=== PATIENT | male | born 1940 | race Caucasian/White ===

== ENCOUNTER 2016-08-03 00:21 | Observation (INO) | payer MEDICARE ==
[~2016-08-03] VITALS: Ht 175.3 cm; Wt 86.4 kg
[~2016-08-03 00:21] MED LIST: ASPI325T11 PO; ASPI325T4 PO; ATOR20TA58 PO; CALC200T3 PO; CALC600T4 PO; ENZA40CA PO; HYDR12.53 PO; LISI10TA2 PO; METO25TA4 PO; MULT-475 PO; NITR0.4T SL; PRAS10TA9 PO; TAMS0.4C97 PO; [UNRECOGNIZED DRUG - OTHER]; diltiazem PO; lupron
[2016-08-03 00:57] LABS: BASO % 0 % (0-3); EOS % 1 % (0-3); HEMATOCRIT 36.4 % (39.0-53.0); HEMOGLOBIN 12.2 g/dL (13.0-17.5); LYMPH # 1.7 x10^3/uL (1.0-4.8); LYMPH % 21 % (24-48); MEAN CORPUSCULAR HEMOGLOBIN 32 pg (25-35); MEAN CORPUSCULAR HGB CONC 34 g/dL (31-37); MEAN CORPUSCULAR VOLUME 96 fL (79-100); MONO % 9 % (0-9); NEUT % 69 % (31-73); PLATELET COUNT 177 x10^3/uL (140-400); RED BLOOD COUNT 3.79 x10^6/uL (4.30-5.70); RED CELL DISTRIBUTION WIDTH 13.3 % (11.5-14.5); WHITE BLOOD COUNT 8.4 x10^3/uL (4.0-11.0)
[2016-08-03] MEDS ORDERED: IV NORMAL SALINE 1000ML BAG 1,000 ML IV SCH (01:00)
[2016-08-03] MEDS ORDERED: ASPIRIN CHEWABLE 81 MG TABLET. PO ONE (01:00)
[2016-08-03 01:07] LABS: CALCIUM 8.5 mg/dL (8.5-10.1); CREATININE 1.1 mg/dL (0.7-1.3); GFR 65.4; POTASSIUM 3.8 mmol/L (3.5-5.1)
[2016-08-03 01:09] LABS: MAGNESIUM 2.2 mg/dL (1.8-2.4)
[2016-08-03 01:23] LABS: CKMB MASS 0.9 ng/mL (0.0-3.6)
--- NOTE | 2016-08-03 01:36 | PHYS DOC ---
Past Medical History Past Medical History: Cancer, Hypertension Additional Past Medical Histor: PROSTATE CA Past Surgical History: Other Additional Past Surgical Histo: 3 CARDIAC STENTS Alcohol Use: None Drug Use: None Adult General Chief Complaint Chief Complaint: CHEST PAIN HPI HPI Patient is a 76 year old male who presents with complaint of chest pain. Patient states his symptoms started earlier this evening at approximately 2000. Patient states he started feeling discomfort in his upper abdomen that he thought might of been indigestion. Patient states he started to radiate up into his chest, then eventually started to radiate into his back. Patient has history coronary artery disease and had 3 stents placed in February [address] Grant of cardiology. Patient is currently on aspirin therapy at home. Patient states that he has been doing cardiac rehabilitation without incident since stent placement. Patient states he had associated nausea and diaphoresis with his symptoms. Patient states that he took Tums to try to relieve his symptoms with no relief. Patient took 2 nitroglycerin prior to arrival which helped reduce his pain. Patient currently rates his pain as 4 out of 10. Patient describes the pain as pressure. Review of Systems Review of Systems Constitutional: Diaphoresis, denies fever or chills [] Eyes: Denies change in visual acuity, redness, or eye pain [] HENT: Denies nasal congestion or sore throat [] Respiratory: Denies cough or shortness of breath [] Cardiovascular: Chest pain [] GI: Abdominal pain, nausea, denies vomiting, bloody stools or diarrhea [] : Denies dysuria or hematuria [] Musculoskeletal: Back pain [] Integument: Denies rash or skin lesions [] Neurologic: Denies headache, focal weakness or sensory changes [] Current Medications Current Medications Current Medications Medications (Trade) Dose Ordered Sig/[facility] Start Time Stop Time Status Last Admin Dose Admin Aspirin (Children'S Aspirin) 324 mg 1X ONCE 08/03/16 01:00 08/03/16 01:01 DC 08/03/16 01:05 324 MG Fentanyl Citrate (Fentanyl 2ml Vial) 50 mcg PRN Q15MIN PRN 08/03/16 01:45 08/04/16 01:44 08/03/16 01:43 50 MCG Info (Do NOT chart on this entry -- for MONITORING) 1 each PRN DAILY PRN 08/03/16 02:00 08/05/16 01:59 Iohexol (Omnipaque 350 Mg/ml) 90 ml 1X ONCE 08/03/16 02:00 08/03/16 02:01 DC 08/03/16 01:54 90 ML Ondansetron HCl (Zofran) 4 mg 1X ONCE 08/03/16 02:00 08/03/16 02:01 DC 08/03/16 01:43 4 MG Sodium Chloride 1,000 ml @ 100 mls/hr Q10H 08/03/16 01:00 08/03/16 10:59 08/03/16 01:06 100 MLS/HR Allergies Allergies Allergies Coded Allergies Type Severity Reaction Last Updated Verified poison cristina extract Allergy Intermediate Hives 02/15/16 Yes Physical Exam Physical Exam Constitutional: Alert, afebrile, appears in mild discomfort. [] HENT: Normocephalic, atraumatic, bilateral external ears normal, oropharynx moist, no oral exudates, nose normal. [] Eyes: PERRLA, EOMI, conjunctiva normal, no discharge. [] Neck: Normal range of motion, no tenderness, supple, no stridor. [] Cardiovascular: Bradycardia, regular rhythm, no murmur [] Lungs & Thorax: Bilateral breath sounds clear to auscultation [] Abdomen: Bowel sounds normal, soft, no tenderness, no masses, no pulsatile masses. [] Skin: Warm, dry, no erythema, no rash. [] Back: No tenderness, no CVA tenderness. [] Extremities: No tenderness, no cyanosis, no clubbing, ROM intact, no edema. [] Neurologic: Alert and oriented X 3, normal motor function, normal sensory function, no focal deficits noted. [] Current Patient Data Vital Signs Vital Signs Date Time Temp Pulse Resp B/P (MAP) Pulse Ox O2 Delivery O2 Flow Rate FiO2 08/03/16 01:29 48 20 144/65 (91) 98 Room Air 08/03/16 00:34 97.5 97.5 Lab Values Laboratory Tests Test 08/03/16 00:40 08/03/16 02:04 White Blood Count 8.4 x10^3/uL (4.0-11.0) Red Blood Count 3.79 x10^6/uL (4.30-5.70) L Hemoglobin 12.2 g/dL (13.0-17.5) L Hematocrit 36.4 % (39.0-53.0) L Mean Corpuscular Volume 96 fL (79-100) Mean Corpuscular Hemoglobin 32 pg (25-35) Mean Corpuscular Hemoglobin Concent 34 g/dL (31-37) Red Cell Distribution Width 13.3 % (11.5-14.5) Platelet Count 177 x10^3/uL (140-400) Neutrophils (%) (Auto) 69 % (31-73) Lymphocytes (%) (Auto) 21 % (24-48) L Monocytes (%) (Auto) 9 % (0-9) Eosinophils (%) (Auto) 1 % (0-3) Basophils (%) (Auto) 0 % (0-3) Neutrophils # (Auto) 5.7 x10^3uL (1.8-7.7) Lymphocytes # (Auto) 1.7 x10^3/uL (1.0-4.8) Monocytes # (Auto) 0.8 x10^3/uL (0.0-1.1) Eosinophils # (Auto) 0.1 x10^3/uL (0.0-0.7) Basophils # (Auto) 0.0 x10^3/uL (0.0-0.2) Sodium Level 143 mmol/L (136-145) Potassium Level 3.8 mmol/L (3.5-5.1) Chloride Level 105 mmol/L (98-107) Carbon Dioxide Level 28 mmol/L (21-32) Anion Gap 10 (6-14) Blood Urea Nitrogen 17 mg/dL (8-26) Creatinine 1.1 mg/dL (0.7-1.3) Estimated GFR (Cockcroft-Gault) 65.4 Glucose Level 129 mg/dL (70-99) H Calcium Level 8.5 mg/dL (8.5-10.1) Magnesium Level 2.2 mg/dL (1.8-2.4) Creatine Kinase 73 U/L (39-308) Creatine Kinase MB (Mass) 0.9 ng/mL (0.0-3.6) Creatine Kinase MB Relative Index 1.2 % (0-4) Troponin I Quantitative < 0.017 ng/mL (0.000-0.055) ZI-Ner-D-Type Natriuretic Peptide 77 pg/mL (0-124) Lipase 99 U/L (73-393) Urine Collection Type Unknown Urine Color Yellow Urine Clarity Clear Urine pH 6.5 Urine Specific [place] >=1.030 Urine Protein Negative mg/dL (NEG-TRACE) Urine Glucose (UA) Negative mg/dL (NEG) Urine Ketones (Stick) Negative mg/dL (NEG) Urine Blood Negative (NEG) Urine Nitrite Negative (NEG) Urine Bilirubin Negative (NEG) Urine Urobilinogen Dipstick 0.2 mg/dL (0.2 mg/dL) Urine Leukocyte Esterase Negative (NEG) Urine RBC Occ /HPF (0-2) Urine WBC Occ /HPF (0-4) Urine Squamous Epithelial Cells Occ /LPF Urine Bacteria 0 /HPF (0-FEW) Urine Hyaline Casts Occasional /HPF Urine Mucus Slight /LPF Laboratory Tests 08/03/16 00:40 Laboratory Tests 08/03/16 00:40 EKG EKG Interpreted by me: Heart rate 45, sinus bradycardia, leftward axis, prolonged HI interval, no acute ST/T-wave abnormalities present [] Radiology/Procedures Radiology/Procedures [facility] [address] [place] [address] IMAGING REPORT Signed PATIENT: ADITYA HARTLEY ACCOUNT: [id number] : 1940 LOCATION: ER AGE: 76 SEX: M EXAM STATUS: REG ER ORD. PHYSICIAN: HILARIO BARBOUR MD REASON: chest pain radiating into back, rule out aortic pathology PROCEDURE: CT ANGIO CHEST ABD PELVIS ADDENDUM ADDENDUM: There is a moderate superior plate Schmorl's node at L3, age indeterminate. Correlate for this as a contributor to back pain. Electronically signed by: Tom Milligan MD (08/03/2016 3:06 AM) DICTATED AND SIGNED BY: TOM MILLIGAN MD DATE: 08/03/16305 CC: HILARIO BARBOUR MD; TIARA MORFIN EXAM: CT angiography of the chest, abdomen and pelvis with and without intravenous contrast. HISTORY: Chest pain radiating to the back. TECHNIQUE: Computed tomographic angiography of the chest, abdomen and pelvis was performed before and after the intravenous administration of 90 mL of Omnipaque 350. 3-D maximum intensity projections were also performed. COMPARISON: None. FINDINGS: Images of the upper abdomen reveal no acute abnormality. Bone windows reveal no suspicious lesions. There is a prominent superior endplate Schmorl's node at L3, age indeterminate. Contrast timing is not ideal for the detection of pulmonary emboli, but none are seen. The right vertebral artery has an atypical origin from the distal aortic arch. It passes posterior to the esophagus and ascends the right paraspinal territory to reach the transverse foramina. There is no large vessel stenosis. The ascending aorta measures 4.2 cm. The proximal arch measures 3.5 cm. The distal arch measures 3.0 cm. The proximal descending portion measures 3.6 cm. The distal descending portion measures 2.8 cm. There is no abdominal aortic aneurysm. Atherosclerotic calcifications are moderate in the abdominal portion and mild in the chest. There is a separate origin of the common hepatic artery directly from the aortic arch. It appears mildly stenotic at its origin. The celiac axis, superior mesenteric artery and inferior mesenteric artery are patent. There are 2 right renal arteries without stenosis. The left renal artery demonstrates no stenosis. Both iliac systems are patent without stenosis. The internal iliac arteries are somewhat ectatic bilaterally without focal aneurysms. There are no pathologically enlarged mediastinal or axillary lymph nodes. There is no pleural or pericardial effusion. The heart is not enlarged. There are extensive coronary atherosclerotic calcifications. There is a calcified granuloma in the left base. Pleural-parenchymal scarring is seen in both apices. Gallstones are noted. There is no pericholecystic inflammation. A 6 mm hypoattenuating focus in hepatic segment 8 is consistent with a small cyst or hemangioma. The adrenal glands, pancreas, spleen and kidneys are unremarkable. There are no pathologically enlarged lymph nodes. The appendix is not inflamed. There is no obstruction. The prostate is mildly enlarged. IMPRESSION: 1. The thoracic aorta is diffusely mildly ectatic as detailed above. Maximal ascending diameter is 4.2 cm. No aortic dissection. No abdominal aortic aneurysm. 2. The common hepatic artery arises directly from the aortic arch and is mildly stenotic at its origin. 3. 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 Dense coronary atherosclerotic calcifications. 5. Cholelithiasis. *One or more of the following individualized dose reduction techniques were utilized for this examination: 1. Automated exposure control. 2. Adjustment of the mA and/or kV according to patient size. 3. Use of iterative reconstruction technique. Electronically signed by: Tom Milligan MD (08/03/2016 2:55 AM) DICTATED and SIGNED BY: TOM MILLIGAN MD DATE: 08/03/16 0220 CC: HILARIO BARBOUR MD; TIARA MORFIN ~ One view AP chest x-ray interpreted by me: No infiltrate, no effusions, normal cardiac silhouette [] Course & Med Decision Making Course & Med Decision Making Pertinent Labs and Imaging studies reviewed. (See chart for details) Patient was given aspirin in the emergency department and was given IV fentanyl. On reevaluation, patient states his symptoms have improved. Patient's CT scan was negative for acute aortic pathology. Due to persistent chest pain and patient's history, the patient will need to be admitted the hospital for rule out of acute coronary syndrome. Patient admitted to Dr. Lezama. Issac Disclaimer Issac Disclaimer This electronic medical record was generated, in whole or in part, using a voice recognition dictation system. Departure Departure Impression: Primary Impression: Chest pain Additional Impression: Coronary artery disease Disposition: ADMITTED INPATIENT Admitting Physician: Jenn Lezama Condition: GUARDED Referrals: TIARA MORFIN (PCP) Problem Qualifiers Primary Impression: Chest pain Chest pain type: unspecified Qualified Codes: R07.9 - Chest pain, unspecified Additional Impression: Coronary artery disease Coronary Disease-Associated Artery/Lesion type: [place] artery [place] vs. transplanted heart: [place] heart Associated angina: with other forms of angina Qualified Codes: I25.118 - Atherosclerotic heart disease of [place] coronary artery with other forms of angina pectoris HILARIO BARBOUR MD August 03, 2016 01:36
[2016-08-03] MEDS ORDERED: fentaNYL PF VIAL 100 MCG/2 ML VIAL IV PRN ×2 (01:45→03:45)
[2016-08-03] MEDS ORDERED: CONTRAST GIVEN MC PRN (02:00)
[2016-08-03] MEDS ORDERED: ONDANSETRON PF 4 MG/2 ML VIAL. IV ONE (02:00)
[2016-08-03] MEDS ORDERED: IOHEXOL 350 MG/ML 100 ML VIAL. IV ONE (02:00)
[2016-08-03 02:21] LABS: BILIRUBIN,URINE NEGATIVE (NEG); GLUCOSE,URINE NEGATIVE (NEG); NITRITE,URINE NEGATIVE (NEG); PH,URINE 6.5; PROTEIN,URINE NEGATIVE (NEG-TRACE); UROBILINOGEN,URINE 0.2 mg/dL (0.2 mg/dL)
[2016-08-03 02:31] LABS: BACTERIA,URINE 0 /HPF (0-FEW); RBC,URINE OCC /HPF (0-2); SQUAMOUS EPITHELIAL CELL,UR OCC /LPF; WBC,URINE OCC /HPF (0-4)
--- NOTE | 2016-08-03 02:58 | RAD ---
EXAM: CT angiography of the chest, abdomen and pelvis with and without intravenous contrast. HISTORY: Chest pain radiating to the back. TECHNIQUE: Computed tomographic angiography of the chest, abdomen and pelvis was performed before and after the intravenous administration of 90 mL of Omnipaque 350. 3-D maximum intensity projections were also performed. COMPARISON: None. FINDINGS: Images of the upper abdomen reveal no acute abnormality. Bone windows reveal no suspicious lesions. There is a prominent superior endplate Schmorl's node at L3, age indeterminate. Contrast timing is not ideal for the detection of pulmonary emboli, but none are seen. The right vertebral artery has an atypical origin from the distal aortic arch. It passes posterior to the esophagus and ascends the right paraspinal territory to reach the transverse foramina. There is no large vessel stenosis. The ascending aorta measures 4.2 cm. The proximal arch measures 3.5 cm. The distal arch measures 3.0 cm. The proximal descending portion measures 3.6 cm. The distal descending portion measures 2.8 cm. There is no abdominal aortic aneurysm. Atherosclerotic calcifications are moderate in the abdominal portion and mild in the chest. There is a separate origin of the common hepatic artery directly from the aortic arch. It appears mildly stenotic at its origin. The celiac axis, superior mesenteric artery and inferior mesenteric artery are patent. There are 2 right renal arteries without stenosis. The left renal artery demonstrates no stenosis. Both iliac systems are patent without stenosis. The internal iliac arteries are somewhat ectatic bilaterally without focal aneurysms. There are no pathologically enlarged mediastinal or axillary lymph nodes. There is no pleural or pericardial effusion. The heart is not enlarged. There are extensive coronary atherosclerotic calcifications. There is a calcified granuloma in the left base. Pleural-parenchymal scarring is seen in both apices. Gallstones are noted. There is no pericholecystic inflammation. A 6 mm hypoattenuating focus in hepatic segment 8 is consistent with a small cyst or hemangioma. The adrenal glands, pancreas, spleen and kidneys are unremarkable. There are no pathologically enlarged lymph nodes. The appendix is not inflamed. There is no obstruction. The prostate is mildly enlarged. IMPRESSION: 1. The thoracic aorta is diffusely mildly ectatic as detailed above. Maximal ascending diameter is 4.2 cm. No aortic dissection. No abdominal aortic aneurysm. 2. The common hepatic artery arises directly from the aortic arch and is mildly stenotic at its origin. 3. 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 Dense coronary atherosclerotic calcifications. 5. Cholelithiasis. *One or more of the following individualized dose reduction techniques were utilized for this examination: 1. Automated exposure control. 2. Adjustment of the mA and/or kV according to patient size. 3. Use of iterative reconstruction technique. Electronically signed by: Tom Milligan MD (08/03/2016 2:55 AM)
[2016-08-03] MEDS ORDERED: ONDANSETRON PF 4 MG/2 ML VIAL. IV PRN (03:45)
[2016-08-03] MEDS ORDERED: ACETAMINOPHEN 325 MG TABLET. PO PRN (03:45)
[2016-08-03] MEDS: IV NORMAL SALINE 1000ML BAG 1,000 ML IV SCH ×3 (04:00→23:34)
[2016-08-03] MEDS ORDERED: METO25TA4 PO (04:11)
[2016-08-03] MEDS ORDERED: ASPI-482 PO (04:11)
[2016-08-03] MEDS ORDERED: RANI150T2 PO (04:11)
[2016-08-03] MEDS ORDERED: HYDR25TA9 PO (04:11)
--- NOTE | 2016-08-03 04:17 | ACF ---
Admit Criteria Forms Admit Criteria Forms Admit Criteria Forms CHEST PAIN Clinical Indications for Admission to Inpatient Care (Place 'X' for any and all applicable criteria): Admission is indicated for chest pain and ANY ONE of the following(1)(2)(3)(4)(5 ): [ ]I. Angina with acute coronary syndrome (Also use Myocardial Infarction or Angina guideline) [ ]II. Hemodynamic instability [ ]III. Angina needing acute intervention as indicated by ALL of the following( 11)(12): [ ]a) Unstable angina is present as indicated by angina that is ANY ONE of the following: [ ]i) New onset [ ]ii) Nocturnal [ ]iii) Prolonged at rest [ ]iv) Progressive [ ]b) Angina warrants acute intervention as indicated by ANY ONE of the following: [ ]i) Recurrent angina (e.g, not responding as previously to treatment) [ ]ii) Angina at rest or with low-level activities despite initial medical therapy [ ]iii) New or presumably new ST-segment depression on ECG [ ]iv) Signs or symptoms of heart failure (eg, dyspnea, pulmonary edema) [ ]v) New or worsening mitral regurgitation [ ]vi) Hemodynamic instability [ ]vii) Dangerous arrhythmia (eg, sustained ventricular tachycardia) [ ]viii) History of percutaneous coronary intervention within 6 months [ ]ix) History of coronary artery bypass graft surgery [ ]x) TASHA risk score of 2 or greater[A] [ ]xi) History of Diabetes(14) [ ]xii) High-risk cardiac ischemia findings on noninvasive testing (e.g, echocardiogram, treadmill testing, nuclear scan) [ ]xiii) Chronic renal insufficiency (ie, estimated GFR less than 60 mL/min/1.732m) [ ]xiv) Left ventricular ejection fraction less than 40% [ ]IV. Evidence of AK (eg, cardiac biomarkers positive, ST-segment elevation on ECG) also use Myocardial Infarction Criteria Form. [ ]V. Pulmonary edema [ ]. Respiratory distress [ ]VII. Chest pain indicative of serious diagnosis other than coronary artery disease (eg, aortic dissection) [ ]VIII. Contraindications and/or Inappropriate clinical situations for Observational Care in patients with Chest Pain, when ANY ONE of the following is required: [ ]a) Patient with risk factor for pulmonary embolism, acute coronary syndrome and myocardial infarction (18) [ ]b) Patient with Pulmonary embolism require an average LOS of 4.3 days, therefore emergency department observation management is inappropriate 18,23 [ ]c) Painful condition/s in the elderly, have the highest rate of recidivism after emergency department observation management (10.8%) 20,21,22 [ ]d) Elevated cardiac biomarker requires intensive and exhaustive care (19) [X]IX. General contraindications and/or Inappropriate clinical situations for Observational Care in patients with Chest Pain, when ANY ONE of the following is required: [X ]a) Prediction of prolongation of LOS based on ANY ONE of the following may be considered as a contraindication for observational care 2, 3, 4, 5, 6, 7, 8, 9, 10, 11 [X ]i) Age > 65 yrs. [ ]ii) Patient arriving by ambulance [ ]iii) Patient with high acuity [ ]iv) Patient requiring vital sign monitoring [ ]v) Patient on IV medication [ ]b) Systolic blood pressures 180mmHg 3,12 [ ]c) Patient with altered mental status including delirium and other alteration of consciousness, (3) [ ]d) Patient whose discharge disposition will be to a [place] [facility] home or rehabilitation home should not be managed in Emergency Department Observation Unit. CMS rule requires 3 days hospital stay before such placement. 3,13 [ ]e) Patient with failure to thrive due to broad array of etiologies 3,16,17 [ ]f) Inability to ambulate 3,14 Extended stay beyond goal length of stay may be needed for (1)(28): [ ]a) Specific condition diagnosed after evaluation (eg, pulmonary embolism, aortic dissection) [ ]b) Unstable angina [ ]c) Continued suspicion of acute coronary syndrome with inability to complete needed cardiac evaluation (eg, patient clinically unable to undergo stress testing) [ ]d) Myocardial infarction (Contents from ANGINA and CHEST PAIN clinical indications for admission to inpatient care have been integrated in this form) The original [employer] content created by [employer] has been revised. The portions of the content which have been revised are identified through the use of italic text or in bold, and [facility] has neither reviewed nor approved the modified material. All other unmodified content is copyright [facility]. Please see references footnoted in the original [facility] edition 2016 LUPE MIJARES August 03, 2016 04:17
[2016-08-03 04:43] VITALS: BP 120/79
--- NOTE | 2016-08-03 04:46 | ACF ---
Admission Forms Criteria TELEMETRY CARE Telemetry Admission Guidelines (Place 'X' for any and all applicable criteria): Admission to telemetry [A] may be indicated for ANY ONE of the following(1)(2)(3 )(4)(5): [X]I. Cardiac disease, including ANY ONE of the following (9)(10)(11)(12)(13 ): [ ]a) Postacute AR [ ]b) Low-risk patients with ST-segment elevation AR who have undergone successful percutaneous coronary intervention [ ]c) Unstable angina [ ]d) Suspected AR (until it is ruled out) [ ]e) Post cardiac surgery (first 48 to 72 hours unless complications occur) [X]f) Acute arrhythmias (including significant tachycardia or bradycardia) [B] [ ]g) Firing of an implantable cardioverter defibrillator [C] [ ]h) Suspected pacemaker or implantable cardioverter defibrillator malfunction (10) [ ]i) New administration or adjustment of an antiarrhythmic drug [D ] [ ]j) Child admitted for acute congestive heart failure [ ]j) Long QT syndrome [ ]k) Advanced heart block (eg, second-degree Mobitz type II, third- degree heart block) [ ]l) Acute myocarditis or pericarditis [ ]m) Short-term (ambulatory or inpatient) monitoring after a cardiac procedure as indicated by ANY ONE of the following [E]: [ ]i) Electrophysiologic studies [ ]ii) Percutaneous coronary intervention with stent placement [ ]iii) Pacemaker placement with cardiac conduction defect [ ]iv) Implantable cardiac defibrillator placement [ ]II. Drug overdose or poisoning with substance that causes arrhythmias or QT prolongation (eg, phenothiazines, sympathomimetic agents, cyclic antidepressants, digitalis, antiarrhythmic drugs)(15) [ ]III. Short-term (ambulatory or inpatient) monitoring after therapeutic or diagnostic procedure requiring conscious sedation or anesthesia (eg, endoscopy, elective cardioversion) [ ]IV. Acute cerebrovascular even[F](18) [ ]V. Massive blood transfusion (eg, at least 10 units of packed red blood cells in 24 hours) [ ]. Variceal bleeding after endoscopy, sclerotherapy, or IV vasopressin [ ]VII. Uncorrected electrolyte abnormalities associated with an increased risk of dangerous arrhythmia [G]; examples include [ ]a) Hyperkalemia with attributable ECG changes [ ]b) Potassium greater than 6.5 mmol/L (mEq/L) in a patient without history of chronic renal disease [ ]c) Prolonged QT attributed to hypokalemia, hypomagnesemia, or hypocalcemia [ ]VIII.Unexplained syncope or other neurologic event suspected of being due to arrhythmia due to a finding that increases risk; examples include(19)(20)(21): [ ]a) High-risk ECG findings (eg, bifascicular block, bradycardia, abnormal QT interval, ventricular pre- excitation) [ ]b) History of previous syncope due to arrhythmia [ ]c) Abnormal ventricular function (eg, reduced ejection fraction ) [ ]d) Exertional or supine syncope [ ]e) Concerning syncope characteristics (eg, sudden loss of consciousness without prodrome) [ ]f) Family history of sudden [ ]g) Use of arrhythmogenic medication [ ]h) Suspected cardiac ischemia [ ]i) Known channelopathy (eg, long QT syndrome, Brugada syndrome, or catecholaminergic paroxysmal ventricular tachycardia) [ ]j) Known structural heart disease (eg, hypertrophic cardiomyopathy , severe valvular disease) [ ]k) Palpitations preceding syncope The original [employer] content created by [employer] has been revised. The portions of the content which have been revised are identified through the use of italic text or in bold, and [employer] has neither reviewed nor approved the modified material. All other unmodified content is copyright [employer] Please see references footnoted in the original [employer] edition 2016 Admission Criteria Met?: Yes IFEOMA JAY August 03, 2016 04:46
[2016-08-03 07:00] VITALS: BP 137/61
--- NOTE | 2016-08-03 07:34 | EKG ---
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
--- NOTE | 2016-08-03 08:02 | RAD ---
AP chest. History: Chest and back pain AP view was taken of the chest. The lungs are clear. Heart is normal in size. There is no effusion. Impression: 1. No acute chest disease.
[2016-08-03] MEDS ORDERED: NITROGLYCERIN SUBLINGUAL 0.4 MG BOTTLE OF 25. SL PRN (08:45)
[2016-08-03] MEDS ORDERED: CALCIUM CARBONATE 500 MG TAB.CHEW PO PRN (08:45)
--- NOTE | 2016-08-03 08:54 | PDOC1 ---
History and Physical Date of Admission Date of Admission DATE: 08/03/16 TIME: 08:49 Identification/Chief Complaint Chief Complaint chest pain Problems: Source Source: Chart review, Patient History of Present Illness History of Present Illness Mr. Mcgraw, is a 76 year old male admit with crushing sternal chest pain. Pain started in Abdomen, then to chest, was 12/10 at 8pm, he took 2 nitro, and pain got a little better, he thought it was indegestion initially. . Patient states he started to radiate up into his chest, then eventually started to radiate into his back. s/p 3 stents placed in 02/[address] Grant and he has been compliant with meds, on DAPT. feeling better w/ cardiac rehabilitation - working hard to maintain current weight . Patient took 2 nitroglycerin prior to arrival which helped reduce his pain. Patient currently rates his pain 0/10, was 4 out of 10 in ER. w/ pressure Past Medical History Cardiovascular: CAD, HTN Pulmonary: No pertinent hx Family History Family History: No Significant Social History Smoke: No ALCOHOL: none Current Problem List Problem List Problems Medical Problems: (1) Chest pain Status: Acute (2) Coronary artery disease Status: Acute Problems: Current Medications Current Medications Current Medications Aspirin (Children'S Aspirin) 324 mg 1X ONCE PO Last administered on 08/03/16 01:05; Start 08/03/16 at 01:00; Stop 08/03/16 at 01:01; Status DC Sodium Chloride 1,000 ml @ 100 mls/hr Q10H IV Last administered on 08/03/16 01:06; Start 08/03/16 at 01:00; Stop 08/03/16 at 10:59 Fentanyl Citrate (Fentanyl 2ml Vial) 50 mcg PRN Q15MIN PRN IV PAIN GREATER THAN 3/10 Last administered on 08/03/16 01:43; Start 08/03/16 at 01:45; Stop at 01:44 Ondansetron HCl (Zofran) 4 mg 1X ONCE IV Last administered on 08/03/16 01:43 ; Start 08/03/16 at 02:00; Stop 08/03/16 at 02:01; Status DC Iohexol (Omnipaque 350 Mg/ml) 90 ml 1X ONCE IV Last administered on 08/03/16 01:54; Start 08/03/16 at 02:00; Stop 08/03/16 at 02:01; Status DC Info (Do NOT chart on this entry -- for MONITORING) 1 each PRN DAILY PRN MC SEE COMMENTS; Start 08/03/16 at 02:00; Stop 08/05/16 at 01:59 Ondansetron HCl (Zofran) 4 mg PRN Q8HRS PRN IV NAUSEA/VOMITING; Start 08/03/16 at 03:45; Stop 08/04/16 at 03:44 Fentanyl Citrate (Fentanyl 2ml Vial) 50 mcg PRN Q2HR PRN IV SEVERE PAIN; Start 08/03/16 at 03:45; Stop 08/04/16 at 03:44 Sodium Chloride 1,000 ml @ 100 mls/hr Q10H IV Last administered on 08/03/16 04:00; Start 08/03/16 at 03:34; Stop 08/04/16 at 03:33 Acetaminophen (Tylenol) 650 mg PRN Q4HRS PRN PO FEVER; Start 08/03/16 at 03:45 ; Stop 08/04/16 at 03:44 Active Scripts Active Lisinopril 10 Mg Tablet 20 Mg PO DAILY Atorvastatin Calcium 20 Mg Tablet 40 Mg PO QHS Effient (Prasugrel Hcl) 10 Mg Tablet 10 Mg PO DAILYWBKFT Nitrostat (Nitroglycerin) 0.4 Mg Tab.subl 0.4 Mg SL PRN Q5MIN PRN Reported Ranitidine Hcl 150 Mg Tablet 1 Tab PO BID Metoprolol Tartrate 25 Mg Tablet 1 Tab PO BID Hydrochlorothiazide Tablet (Hydrochlorothiazide) 25 Mg Tablet 1 Tab PO DAILY Aspir 81 (Aspirin) 81 Mg Tablet.dr 1 Tab PO BID Tums (Calcium Carbonate) 200 Mg Tab.chew 400 Mg PO PRN Q2-4HRS PRN Calcium (Calcium Carbonate) 600 Mg Tablet 600 Mg PO DAILY16 One Daily Multivitamin (Multivitamin) 1 Each Tablet 1 Each PO DAILY Flomax (Tamsulosin Hcl) 0.4 Mg Cap.er.24h 0.4 Mg PO DAILY Xtandi (Enzalutamide) 40 Mg Capsule 4 Tab PO DAILY Allergies Allergies: Coded Allergies: poison cristina extract (Verified Allergy, Intermediate, Hives, 02/15/16) some breathing difficulty in past. ROS General: No: Chills, Night Sweats, Fatigue, Malaise, Appetite, Other PSYCHOLOGICAL ROS: No: Anxiety, Behavioral Disorder, Concentration difficultie , Decreased libido, Depression, Disorientation, Hallucinations, Hostility, Irritablity, Memory difficulties, Mood Swings, Obsessive thoughts, Physical abuse, Sexual abuse, Sleep disturbances, Suicidal ideation, Other Eyes: No Blurry vision, No Decreased vision, No Double vision, No Dry eyes, No Excessive tearing, No Eye Pain, No Itchy Eyes, No Loss of vision, No Photophobia , No Scotomata, No Uses contacts, No Uses glasses, No Other HEENT: No: Heacaches, Visual Changes, Hearing change, Nasal congestion, Nasal discharge, Oral lesions, Sinus pain, Sore Throat, Epistaxis, Sneezing, Snoring, Tinnitus, Vertigo, Vocal changes, Other Respiratory: No: Cough, Hemoptysis, Orthopnea, Pleuritic Pain, Shortness of breath, SOB with excertion, Sputum Changes, Stridor, Tachypnea, Wheezing, Other Cardiovascular: yes Chest Pain, No Palpitations, No Orthopnea, No Paroxysmal Noc. Dyspnea, No Edema, No Lt Headedness, No Other Gastrointestinal: No Nausea, No Vomiting, No Abdominal Pain, No Diarrhea, No Constipation, No Melena, No Hematochezia, No Other Genitourinary: No Dysuria, No Frequency, No Incontinence, No Hematuria, No Retention, No Discharge, No Urgency, No Pain, No Flank Pain, No Other, No , No , No , No , No , No , No Musculoskeletal: Yes Joint Pain, No Gait Disturbance, No Joint Stiffness, No Joint Swelling, No Muscle Pain, No Muscular Weakness, No Pain In:, No Swelling In:, No Other Neurological: No Behavorial Changes, No Bowel/Bladder ControlChng, No Confusion , No Dizziness, No Gait Disturbance, No Headaches, No Impaired Coord/balance, No Memory Loss, No Numbness/Tingling, No Seizures, No Speech Problems, No Tremors, No Visual Changes, No Weakness, No Other Skin: No Dry Skin, No Eczema, No Hair Changes, No Lumps, No Mole Changes, No Mottling, No Nail Changes, No Pruritus, No Rash, No Skin Lesion Changes, No Other, No Acne Physical Exam General: Alert, Oriented X3, Cooperative, No acute distress HEENT: Atraumatic, PERRLA, EOMI Lungs: Clear to auscultation, Normal air movement Heart: no gallops, no murmurs Abdomen: Normal bowel sounds, Soft Extremities: No cyanosis, No edema Skin: No rashes, No breakdown, No significant lesion Neuro: Normal speech, Sensation intact Psych/Mental Status: Mental status NL, Mood NL Vitals Vitals Vital Signs Date Time Temp Pulse Resp B/P (MAP) Pulse Ox O2 Delivery O2 Flow Rate FiO2 08/03/16 05:19 Room Air 08/03/16 04:43 96.8 63 18 120/79 (93) 96 96.8 Labs Labs Laboratory Tests Test 08/03/16 00:40 08/03/16 02:04 White Blood Count 8.4 x10^3/uL (4.0-11.0) Red Blood Count 3.79 x10^6/uL (4.30-5.70) Hemoglobin 12.2 g/dL (13.0-17.5) Hematocrit 36.4 % (39.0-53.0) Mean Corpuscular Volume 96 fL (79-100) Mean Corpuscular Hemoglobin 32 pg (25-35) Mean Corpuscular Hemoglobin Concent 34 g/dL (31-37) Red Cell Distribution Width 13.3 % (11.5-14.5) Platelet Count 177 x10^3/uL (140-400) Neutrophils (%) (Auto) 69 % (31-73) Lymphocytes (%) (Auto) 21 % (24-48) Monocytes (%) (Auto) 9 % (0-9) Eosinophils (%) (Auto) 1 % (0-3) Basophils (%) (Auto) 0 % (0-3) Neutrophils # (Auto) 5.7 x10^3uL (1.8-7.7) Lymphocytes # (Auto) 1.7 x10^3/uL (1.0-4.8) Monocytes # (Auto) 0.8 x10^3/uL (0.0-1.1) Eosinophils # (Auto) 0.1 x10^3/uL (0.0-0.7) Basophils # (Auto) 0.0 x10^3/uL (0.0-0.2) Sodium Level 143 mmol/L (136-145) Potassium Level 3.8 mmol/L (3.5-5.1) Chloride Level 105 mmol/L (98-107) Carbon Dioxide Level 28 mmol/L (21-32) Anion Gap 10 (6-14) Blood Urea Nitrogen 17 mg/dL (8-26) Creatinine 1.1 mg/dL (0.7-1.3) Estimated GFR (Cockcroft-Gault) 65.4 Glucose Level 129 mg/dL (70-99) Calcium Level 8.5 mg/dL (8.5-10.1) Magnesium Level 2.2 mg/dL (1.8-2.4) Creatine Kinase 73 U/L (39-308) Creatine Kinase MB (Mass) 0.9 ng/mL (0.0-3.6) Creatine Kinase MB Relative Index 1.2 % (0-4) Troponin I Quantitative < 0.017 ng/mL (0.000-0.055) TP-Qyq-K-Type Natriuretic Peptide 77 pg/mL (0-124) Lipase 99 U/L (73-393) Urine Collection Type Unknown Urine Color Yellow Urine Clarity Clear Urine pH 6.5 Urine Specific [place] >=1.030 Urine Protein Negative mg/dL (NEG-TRACE) Urine Glucose (UA) Negative mg/dL (NEG) Urine Ketones (Stick) Negative mg/dL (NEG) Urine Blood Negative (NEG) Urine Nitrite Negative (NEG) Urine Bilirubin Negative (NEG) Urine Urobilinogen Dipstick 0.2 mg/dL (0.2 mg/dL) Urine Leukocyte Esterase Negative (NEG) Urine RBC Occ /HPF (0-2) Urine WBC Occ /HPF (0-4) Urine Squamous Epithelial Cells Occ /LPF Urine Bacteria 0 /HPF (0-FEW) Urine Hyaline Casts Occasional /HPF Urine Mucus Slight /LPF Laboratory Tests Test 08/03/16 00:40 08/03/16 02:04 White Blood Count 8.4 x10^3/uL (4.0-11.0) Red Blood Count 3.79 x10^6/uL (4.30-5.70) Hemoglobin 12.2 g/dL (13.0-17.5) Hematocrit 36.4 % (39.0-53.0) Mean Corpuscular Volume 96 fL (79-100) Mean Corpuscular Hemoglobin 32 pg (25-35) Mean Corpuscular Hemoglobin Concent 34 g/dL (31-37) Red Cell Distribution Width 13.3 % (11.5-14.5) Platelet Count 177 x10^3/uL (140-400) Neutrophils (%) (Auto) 69 % (31-73) Lymphocytes (%) (Auto) 21 % (24-48) Monocytes (%) (Auto) 9 % (0-9) Eosinophils (%) (Auto) 1 % (0-3) Basophils (%) (Auto) 0 % (0-3) Neutrophils # (Auto) 5.7 x10^3uL (1.8-7.7) Lymphocytes # (Auto) 1.7 x10^3/uL (1.0-4.8) Monocytes # (Auto) 0.8 x10^3/uL (0.0-1.1) Eosinophils # (Auto) 0.1 x10^3/uL (0.0-0.7) Basophils # (Auto) 0.0 x10^3/uL (0.0-0.2) Sodium Level 143 mmol/L (136-145) Potassium Level 3.8 mmol/L (3.5-5.1) Chloride Level 105 mmol/L (98-107) Carbon Dioxide Level 28 mmol/L (21-32) Anion Gap 10 (6-14) Blood Urea Nitrogen 17 mg/dL (8-26) Creatinine 1.1 mg/dL (0.7-1.3) Estimated GFR (Cockcroft-Gault) 65.4 Glucose Level 129 mg/dL (70-99) Calcium Level 8.5 mg/dL (8.5-10.1) Magnesium Level 2.2 mg/dL (1.8-2.4) Creatine Kinase 73 U/L (39-308) Creatine Kinase MB (Mass) 0.9 ng/mL (0.0-3.6) Creatine Kinase MB Relative Index 1.2 % (0-4) Troponin I Quantitative < 0.017 ng/mL (0.000-0.055) TF-Bed-U-Type Natriuretic Peptide 77 pg/mL (0-124) Lipase 99 U/L (73-393) Urine Collection Type Unknown Urine Color Yellow Urine Clarity Clear Urine pH 6.5 Urine Specific [place] >=1.030 Urine Protein Negative mg/dL (NEG-TRACE) Urine Glucose (UA) Negative mg/dL (NEG) Urine Ketones (Stick) Negative mg/dL (NEG) Urine Blood Negative (NEG) Urine Nitrite Negative (NEG) Urine Bilirubin Negative (NEG) Urine Urobilinogen Dipstick 0.2 mg/dL (0.2 mg/dL) Urine Leukocyte Esterase Negative (NEG) Urine RBC Occ /HPF (0-2) Urine WBC Occ /HPF (0-4) Urine Squamous Epithelial Cells Occ /LPF Urine Bacteria 0 /HPF (0-FEW) Urine Hyaline Casts Occasional /HPF Urine Mucus Slight /LPF Images Images CT angio 1. The thoracic aorta is diffusely mildly ectatic as detailed above. Maximal ascending diameter is 4.2 cm. No aortic dissection. No abdominal aortic aneurysm. 2. The common hepatic artery arises directly from the aortic arch and is mildly stenotic at its origin. 3. 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 Dense coronary atherosclerotic calcifications. 5. Cholelithiasis. VTE Prophylaxis Ordered VTE Prophylaxis Devices: Yes VTE Pharmacological Prophylaxi: No Assessment/Plan Assessment/Plan midsternal crushing chest pain at home 02/14, now almost totally resolved, CAD, s/p 3 stents 02/20, he has been compliant with Dapt Angina, repeat trop to r/o ACS, CV consult to determine stability admit OMAYRA TORRES MD August 03, 2016 08:54
[2016-08-03] MEDS: hydroCHLOROthiazide 25 MG TABLET PO SCH (09:00)
[2016-08-03] MEDS: METOPROLOL TART IMMED RELEASE 25 MG TABLET. PO SCH ×2 (09:00→20:03)
[2016-08-03] MEDS: FAMOTIDINE 20 MG TABLET. PO SCH ×2 (09:00→20:39)
[2016-08-03] MEDS: LISINOPRIL 10 MG TABLET PO SCH (09:00)
[2016-08-03] MEDS: ENZALUTAMIDE PO SCH (09:00)
--- NOTE | 2016-08-03 10:44 | PDOC2 ---
CONSULT Date of Consult Date of Consult DATE: 08/03/16 TIME: 10:36 Reason for Consult Reason for Consult: Chest pain Referring Physician Referring Physician: Dr. Kohler Identification/Chief Complaint Chief Complaint Epigastric pain Source Source: Chart review, Patient History of Present Illness Reason for Visit: 76-year-old male with history of coronary artery disease s/p PCI/stents placement to [facility] and diagonal branch in February 2016 presented with epigastric pain radiating to the back that started last night. This was associated with diaphoresis, belching and nausea and was only slightly relieved with sublingual nitroglycerin. He stated that he had a big lunch at [employer] earlier that day. He also stated that this pain is different than the pain he had prior to his angina plasty. He denied any orthopnea/PND, palpitations or syncope. He is currently enrolled in maintenance rehabilitation in [place] and has not noticed any chest pain or dyspnea on exertion. Past Medical History Cardiovascular: CAD, HTN Pulmonary: No pertinent hx Family History Family History: No Significant Social History No ALCOHOL: none Current Problem List Problem List Problems Medical Problems: (1) Chest pain Status: Acute (2) Coronary artery disease Status: Acute Current Medications Current Medications Current Medications Aspirin (Children'S Aspirin) 324 mg 1X ONCE PO Last administered on 08/03/16 01:05; Start 08/03/16 at 01:00; Stop 08/03/16 at 01:01; Status DC Sodium Chloride 1,000 ml @ 100 mls/hr Q10H IV Last administered on 08/03/16 01:06; Start 08/03/16 at 01:00; Stop 08/03/16 at 10:59 Fentanyl Citrate (Fentanyl 2ml Vial) 50 mcg PRN Q15MIN PRN IV PAIN GREATER THAN 3/10 Last administered on 08/03/16 01:43; Start 08/03/16 at 01:45; Stop at 01:44 Ondansetron HCl (Zofran) 4 mg 1X ONCE IV Last administered on 08/03/16 01:43 ; Start 08/03/16 at 02:00; Stop 08/03/16 at 02:01; Status DC Iohexol (Omnipaque 350 Mg/ml) 90 ml 1X ONCE IV Last administered on 08/03/16 01:54; Start 08/03/16 at 02:00; Stop 08/03/16 at 02:01; Status DC Info (Do NOT chart on this entry -- for MONITORING) 1 each PRN DAILY PRN MC SEE COMMENTS; Start 08/03/16 at 02:00; Stop 08/05/16 at 01:59 Ondansetron HCl (Zofran) 4 mg PRN Q8HRS PRN IV NAUSEA/VOMITING; Start 08/03/16 at 03:45; Stop 08/04/16 at 03:44 Fentanyl Citrate (Fentanyl 2ml Vial) 50 mcg PRN Q2HR PRN IV SEVERE PAIN; Start 08/03/16 at 03:45; Stop 08/04/16 at 03:44 Sodium Chloride 1,000 ml @ 100 mls/hr Q10H IV Last administered on 08/03/16t 10:19; Start 08/03/16 at 03:34; Stop 08/04/16 at 03:33 Acetaminophen (Tylenol) 650 mg PRN Q4HRS PRN PO FEVER; Start 08/03/16 at 03:45 ; Stop 08/04/16 at 03:44 Aspirin (Ecotrin) 81 mg BID PO ; Start 08/03/16 at 09:00 Atorvastatin Calcium (Lipitor) 40 mg QHS PO ; Start 08/03/16 at 21:00 Calcium Carbonate/ Glycine (Tums) 500 mg PRN Q6HRS PRN PO INDIGESTION; Start at 08:45 Hydrochlorothiazide (Hydrodiuril) 25 mg DAILY PO ; Start 08/03/16 at 09:00 Lisinopril (Prinivil) 20 mg DAILY PO ; Start 08/03/16 at 09:00 Metoprolol Tartrate (Lopressor) 25 mg BID PO ; Start 08/03/16 at 09:00 Nitroglycerin (Nitrostat) 0.4 mg PRN Q5MIN PRN SL CHEST PAIN; Start 08/03/16 at 08:45 Prasugrel (Effient) 10 mg DAILYWBKFT PO ; Start 08/03/16 at 08:45 Tamsulosin HCl (Flomax) 0.4 mg DAILY PO ; Start 08/03/16 at 09:00 Calcium Carbonate/ Glycine (Oscal) 500 mg DAILYWSUP PO ; Start 08/03/16 at 17:00 Non-Formulary Medication 4 tab DAILY PO ; Start 08/03/16 at 09:00; Status UNV Multivitamins (Thera M Plus) 1 tab DAILY PO ; Start 08/03/16 at 09:00 Famotidine (Pepcid) 20 mg BID PO ; Start 08/03/16 at 09:00 Enoxaparin Sodium (Lovenox Per Pharmacy Prophylaxis Dosing) 1 each PRN DAILY PRN MC SEE COMMENTS; Start 08/03/16 at 09:00 Enoxaparin Sodium (Lovenox 40mg Syringe) 40 mg Q24H SQ ; Start 08/03/16 at 09:00 Active Scripts Active Lisinopril 10 Mg Tablet 20 Mg PO DAILY Atorvastatin Calcium 20 Mg Tablet 40 Mg PO QHS Effient (Prasugrel Hcl) 10 Mg Tablet 10 Mg PO DAILYWBKFT Nitrostat (Nitroglycerin) 0.4 Mg Tab.subl 0.4 Mg SL PRN Q5MIN PRN Reported Ranitidine Hcl 150 Mg Tablet 1 Tab PO BID Metoprolol Tartrate 25 Mg Tablet 1 Tab PO BID Hydrochlorothiazide Tablet (Hydrochlorothiazide) 25 Mg Tablet 1 Tab PO DAILY Aspir 81 (Aspirin) 81 Mg Tablet.dr 1 Tab PO BID Tums (Calcium Carbonate) 200 Mg Tab.chew 400 Mg PO PRN Q2-4HRS PRN Calcium (Calcium Carbonate) 600 Mg Tablet 600 Mg PO DAILY16 One Daily Multivitamin (Multivitamin) 1 Each Tablet 1 Each PO DAILY Flomax (Tamsulosin Hcl) 0.4 Mg Cap.er.24h 0.4 Mg PO DAILY Xtandi (Enzalutamide) 40 Mg Capsule 4 Tab PO DAILY Allergies Allergies: Coded Allergies: poison cristina extract (Verified Allergy, Intermediate, Hives, 02/15/16) some breathing difficulty in past. ROS PSYCHOLOGICAL ROS: No: Hallucinations Eyes: No Loss of vision HEENT: No: Epistaxis Respiratory: No: Hemoptysis Cardiovascular: yes Chest Pain Gastrointestinal: Yes Nausea, No Vomiting Genitourinary: No Hematuria Neurological: No Seizures Skin: No Rash Physical Exam General: Alert, Oriented X3 HEENT: Atraumatic, PERRLA Lungs: Clear to auscultation Heart: Regular rate, No murmurs Abdomen: Soft, No tenderness Psych/Mental Status: Mood NL Vitals VITALS Vital Signs Date Time Temp Pulse Resp B/P (MAP) Pulse Ox O2 Delivery O2 Flow Rate FiO2 08/03/16 07:00 97.7 51 18 137/61 (86) 97 Room Air 97.7 Labs Labs Laboratory Tests Test 08/03/16 00:40 08/03/16 02:04 08/03/16 09:31 White Blood Count 8.4 x10^3/uL (4.0-11.0) Red Blood Count 3.79 x10^6/uL (4.30-5.70) Hemoglobin 12.2 g/dL (13.0-17.5) Hematocrit 36.4 % (39.0-53.0) Mean Corpuscular Volume 96 fL (79-100) Mean Corpuscular Hemoglobin 32 pg (25-35) Mean Corpuscular Hemoglobin Concent 34 g/dL (31-37) Red Cell Distribution Width 13.3 % (11.5-14.5) Platelet Count 177 x10^3/uL (140-400) Neutrophils (%) (Auto) 69 % (31-73) Lymphocytes (%) (Auto) 21 % (24-48) Monocytes (%) (Auto) 9 % (0-9) Eosinophils (%) (Auto) 1 % (0-3) Basophils (%) (Auto) 0 % (0-3) Neutrophils # (Auto) 5.7 x10^3uL (1.8-7.7) Lymphocytes # (Auto) 1.7 x10^3/uL (1.0-4.8) Monocytes # (Auto) 0.8 x10^3/uL (0.0-1.1) Eosinophils # (Auto) 0.1 x10^3/uL (0.0-0.7) Basophils # (Auto) 0.0 x10^3/uL (0.0-0.2) Sodium Level 143 mmol/L (136-145) Potassium Level 3.8 mmol/L (3.5-5.1) Chloride Level 105 mmol/L (98-107) Carbon Dioxide Level 28 mmol/L (21-32) Anion Gap 10 (6-14) Blood Urea Nitrogen 17 mg/dL (8-26) Creatinine 1.1 mg/dL (0.7-1.3) Estimated GFR (Cockcroft-Gault) 65.4 Glucose Level 129 mg/dL (70-99) Calcium Level 8.5 mg/dL (8.5-10.1) Magnesium Level 2.2 mg/dL (1.8-2.4) Creatine Kinase 73 U/L (39-308) Creatine Kinase MB (Mass) 0.9 ng/mL (0.0-3.6) Creatine Kinase MB Relative Index 1.2 % (0-4) Troponin I Quantitative < 0.017 ng/mL (0.000-0.055) < 0.017 ng/mL (0.000-0.055) UF-Lnj-Q-Type Natriuretic Peptide 77 pg/mL (0-124) Lipase 99 U/L (73-393) Urine Collection Type Unknown Urine Color Yellow Urine Clarity Clear Urine pH 6.5 Urine Specific [place] >=1.030 Urine Protein Negative mg/dL (NEG-TRACE) Urine Glucose (UA) Negative mg/dL (NEG) Urine Ketones (Stick) Negative mg/dL (NEG) Urine Blood Negative (NEG) Urine Nitrite Negative (NEG) Urine Bilirubin Negative (NEG) Urine Urobilinogen Dipstick 0.2 mg/dL (0.2 mg/dL) Urine Leukocyte Esterase Negative (NEG) Urine RBC Occ /HPF (0-2) Urine WBC Occ /HPF (0-4) Urine Squamous Epithelial Cells Occ /LPF Urine Bacteria 0 /HPF (0-FEW) Urine Hyaline Casts Occasional /HPF Urine Mucus Slight /LPF Laboratory Tests Test 08/03/16 00:40 08/03/16 02:04 08/03/16 09:31 White Blood Count 8.4 x10^3/uL (4.0-11.0) Red Blood Count 3.79 x10^6/uL (4.30-5.70) Hemoglobin 12.2 g/dL (13.0-17.5) Hematocrit 36.4 % (39.0-53.0) Mean Corpuscular Volume 96 fL (79-100) Mean Corpuscular Hemoglobin 32 pg (25-35) Mean Corpuscular Hemoglobin Concent 34 g/dL (31-37) Red Cell Distribution Width 13.3 % (11.5-14.5) Platelet Count 177 x10^3/uL (140-400) Neutrophils (%) (Auto) 69 % (31-73) Lymphocytes (%) (Auto) 21 % (24-48) Monocytes (%) (Auto) 9 % (0-9) Eosinophils (%) (Auto) 1 % (0-3) Basophils (%) (Auto) 0 % (0-3) Neutrophils # (Auto) 5.7 x10^3uL (1.8-7.7) Lymphocytes # (Auto) 1.7 x10^3/uL (1.0-4.8) Monocytes # (Auto) 0.8 x10^3/uL (0.0-1.1) Eosinophils # (Auto) 0.1 x10^3/uL (0.0-0.7) Basophils # (Auto) 0.0 x10^3/uL (0.0-0.2) Sodium Level 143 mmol/L (136-145) Potassium Level 3.8 mmol/L (3.5-5.1) Chloride Level 105 mmol/L (98-107) Carbon Dioxide Level 28 mmol/L (21-32) Anion Gap 10 (6-14) Blood Urea Nitrogen 17 mg/dL (8-26) Creatinine 1.1 mg/dL (0.7-1.3) Estimated GFR (Cockcroft-Gault) 65.4 Glucose Level 129 mg/dL (70-99) Calcium Level 8.5 mg/dL (8.5-10.1) Magnesium Level 2.2 mg/dL (1.8-2.4) Creatine Kinase 73 U/L (39-308) Creatine Kinase MB (Mass) 0.9 ng/mL (0.0-3.6) Creatine Kinase MB Relative Index 1.2 % (0-4) Troponin I Quantitative < 0.017 ng/mL (0.000-0.055) < 0.017 ng/mL (0.000-0.055) XQ-Xiw-H-Type Natriuretic Peptide 77 pg/mL (0-124) Lipase 99 U/L (73-393) Urine Collection Type Unknown Urine Color Yellow Urine Clarity Clear Urine pH 6.5 Urine Specific [place] >=1.030 Urine Protein Negative mg/dL (NEG-TRACE) Urine Glucose (UA) Negative mg/dL (NEG) Urine Ketones (Stick) Negative mg/dL (NEG) Urine Blood Negative (NEG) Urine Nitrite Negative (NEG) Urine Bilirubin Negative (NEG) Urine Urobilinogen Dipstick 0.2 mg/dL (0.2 mg/dL) Urine Leukocyte Esterase Negative (NEG) Urine RBC Occ /HPF (0-2) Urine WBC Occ /HPF (0-4) Urine Squamous Epithelial Cells Occ /LPF Urine Bacteria 0 /HPF (0-FEW) Urine Hyaline Casts Occasional /HPF Urine Mucus Slight /LPF Assessment/Plan Assessment/Plan 1. Chest/epigastric pain with atypical features, most probably GI etiology. Myocardial infarction ruled out. Due to his history of coronary artery disease, we will obtain Lexiscan nuclear stress test to rule out ischemia. Recent 2-D echo showed LVEF 65%. Continue current medications including Prasugrel 2. Hypertension: Well-controlled 3. Hyperlipidemia: Continue statin therapy Thank you for your consultation ROBER VALLES MD August 03, 2016 10:44
[2016-08-03 11:49] VITALS: BP 136/65
[2016-08-03] MEDS ORDERED: REGADENOSON 0.4 MG/5 ML DISP.SYRIN. IV ONE (14:15)
[2016-08-03] MEDS: ASPIRIN ENTERIC COATED 81 MG TABLET.DR. PO SCH ×2 (16:18→20:39)
[2016-08-03] MEDS: TAMSULOSIN 0.4 MG CAP.ER.24H. PO SCH (16:18)
[2016-08-03] MEDS: MULTIVITAMIN with MINERAL TABLET. PO SCH (16:18)
[2016-08-03] MEDS: PRASUGREL 10 MG TABLET. PO SCH (16:19)
[2016-08-03] MEDS: ENOXAPARIN 40 MG/0.4 ML SYRINGE. SQ SCH (16:19)
[2016-08-03] MEDS ORDERED: CALCIUM CARBONATE 500 MG TABLET PO SCH (17:00)
[2016-08-03 19:00] VITALS: BP 140/42
[2016-08-03] MEDS ORDERED: ATORVASTATIN CALCIUM 20 MG TABLET PO SCH (21:00)
[2016-08-03 23:00] VITALS: BP 134/76
[2016-08-04 03:00] VITALS: BP 128/66
[2016-08-04 04:29] LABS: BASO % 1 % (0-3); EOS % 3 % (0-3); HEMATOCRIT 33.4 % (39.0-53.0); HEMOGLOBIN 11.3 g/dL (13.0-17.5); LYMPH # 2.4 x10^3/uL (1.0-4.8); LYMPH % 37 % (24-48); MEAN CORPUSCULAR HEMOGLOBIN 33 pg (25-35); MEAN CORPUSCULAR HGB CONC 34 g/dL (31-37); MEAN CORPUSCULAR VOLUME 97 fL (79-100); MONO % 9 % (0-9); NEUT % 51 % (31-73); PLATELET COUNT 149 x10^3/uL (140-400); RED BLOOD COUNT 3.44 x10^6/uL (4.30-5.70); RED CELL DISTRIBUTION WIDTH 13.4 % (11.5-14.5); WHITE BLOOD COUNT 6.5 x10^3/uL (4.0-11.0)
[2016-08-04 04:58] LABS: CALCIUM 7.9 mg/dL (8.5-10.1); CREATININE 0.9 mg/dL (0.7-1.3); GFR 82.5; POTASSIUM 4.9 mmol/L (3.5-5.1)
[2016-08-04 07:00] VITALS: BP 130/81
--- NOTE | 2016-08-04 07:09 | RAD ---
APPROVED REPORT Test Type: Pharmacological Stress Nurse/Tech: Amie Gallagher RN Test Indications: chest pain, CAD Cardiac History: see ehr Medications: see ehr Medical History: see ehr Resting ECG: SB Resting Heart Rate: 46 bpm Resting Blood Pressure: 110/60mmHg Pretest Chest Pain: None Nurse/Tech Notes Lungs CTA, S1, S2 Consent: The procedure was explained to the patient in lay terms. Informed consent was witnessed. Khoa eout was entered into [employer]. History and Stress Test performed by Ellie DentNLydia Pharm. Details Pharmacologic stress testing was performed using 0.4mg per 5ml of regadenoson given intravenously ove r 7-10 seconds. Stress Symptoms No chest pain or symptoms. POST EXERCISE Reason for Termination: Infusion complete Max HR: 70 bpm Max Blood Pressure: 129/64mmHg Blood Pressure response to exercise: Normal blood pressure response during stress. Chest Pain: No. Arrhythmia: No. ST Change: No. INTERPRETATION Stress EKG Conclusion: Baseline EKG showed sinus rhythm. No ischemic changes at peak stress. No arr hythmias. Imaging Protocol IMAGE PROTOCOL: Rest Tc-99m/stress Tc-99m 1 day Rest: Stress: Viability: Radiopharm.Tc99m [id number] Sestamibi Dose11.1mCi 36.3mCi Duration 15min. 10min. Img Date 08/03/2016 08/03/2016 Inj-Img [id number]. 45min. Rest Admin Site:IV - Left AntecubitalAdministrator:ADRIAN Arce Stress Admin Site: IV - Left AntecubitalAdministrator: ADRIAN Arce STRESS DATA End Diast. Vol.110.0mlAv. Heart Rate52.0bpm End Syst. Vol.30.0mlCO Index BSA0.0L/min Myocardial Cmym213.0gEject. Rdfkagik35.0% Stress Rates Pk. Fill Rate2.43EDV/secLVtime Pk. Fill 217.19msec Pk. Empty Rate3.35ESV/secLVtime Pk. Aieru388.59msec 03/10 Pk. Fill1.36EDV/sec Stress Scores Regional WT0.00Summed WT0.00 Regional WM0.00Summed WM1.00 Study quality was good. Left Ventricular size was Normal at Rest and Stress. Lung uptake was Normal. Left Ventricular ejection fraction is 73%. The rest and stress images show normal perfusion, normal contraction and thickening. LV Perf. Quant 17 Seg. SSS2.00 17 Seg. SRS3.00 17 Seg. SDS1.00 Stress Defect Extent (% LAD)0.00Rest Defect Extent (% LAD)0.00Rev. Defect Extent (% LAD)0.00 Stress Defect Extent (% LCX) 11.30Rest Defect Extent (% LCX)21.30Rev. Defect Extent (% LCX)0.00 Stress Defect Extent (% RCA)0.00Rest Defect Extent (% RCA)0.00Rev. Defect Extent (% RCA)0.00 Stress Defect Extent (% ALDO)3.70Rest Defect Extent (% ALDO)3.70Rev. Defect Extent (% ALDO)0.00 Conclusion 1. Regadenoson cardioisotope stress test did not show any evidence of ischemia or infarct. 2. Normal left ventricular systolic function with ejection fraction calculated at 73%. 3. Low risk for cardiac events.
[2016-08-04] MEDS: TAMSULOSIN 0.4 MG CAP.ER.24H. PO SCH (07:46)
[2016-08-04] MEDS: ASPIRIN ENTERIC COATED 81 MG TABLET.DR. PO SCH (07:46)
[2016-08-04] MEDS: MULTIVITAMIN with MINERAL TABLET. PO SCH (07:46)
[2016-08-04] MEDS: PRASUGREL 10 MG TABLET. PO SCH (07:47)
[2016-08-04] MEDS: METOPROLOL TART IMMED RELEASE 25 MG TABLET. PO SCH (07:47)
[2016-08-04] MEDS: LISINOPRIL 10 MG TABLET PO SCH (07:48)
[2016-08-04] MEDS: FAMOTIDINE 20 MG TABLET. PO SCH (07:48)
[2016-08-04] MEDS: hydroCHLOROthiazide 25 MG TABLET PO SCH (07:49)
[2016-08-04] MEDS: ENOXAPARIN 40 MG/0.4 ML SYRINGE. SQ SCH (07:49)
[2016-08-04] MEDS: ENZALUTAMIDE PO SCH (09:00)
[2016-08-04] MEDS ORDERED: METO25TA4 PO (10:15)
[2016-08-04 11:17] VITALS: BP 126/45
[2016-08-04 11:30] VITALS: BP 148/79
== END 2016-08-04 13:38 | disposition home or self-care (01) ==
LOC: ER 00:21 → 5 NORTH 02:12
PROVIDERS: ADMIT Internal Medicine; ATTEND Internal Medicine
DX: I25.119 Atherosclerotic heart disease of native coronary artery with unspecified angina pectoris (principal); I10 Essential (primary) hypertension; K80.20 Calculus of gallbladder without cholecystitis without obstruction; E78.5 Hyperlipidemia, unspecified; Z79.82 Long term (current) use of aspirin; Z95.5 Presence of coronary angioplasty implant and graft; Z85.46 Personal history of malignant neoplasm of prostate
CPT/HCPCS: 36415; 71010; 71275; 74174; 78452; 80048; 81001; 82553; 83690; 83735; 83880; 84484; 85027; 93005; 93017; 96361; 96372; 96374; 96375; 99285; A9500; G0378; J1650; J2405; J2785; J3010; J7030; Q9967; 96376; G0379

== ENCOUNTER 2016-08-17 10:09 | Observation (INO) | payer MEDICARE ==
[2016-08-17] VITALS (8 sets, daily range): BP systolic 113–153; BP diastolic 58–70
[~2016-08-17] VITALS: Ht 177.8 cm; Wt 83.5 kg
[~2016-08-17 10:09] MED LIST changes: +AMOX1TAB61 PO; +ASPI-482 PO; -ASPI325T4 PO; +ASPI325T8 PO; +BUPIVAC MPF-EPI 0.5%-1:200000 30 ML VIAL. ONE; +HYDR25TA9 PO; +HYDROmorphone 2 MG/ML VIAL IV PRN; +IOHEXOL 300 MG/ML 50 ML VIAL. ONE; +IV RINGERS,LACTATED 1000ML 1,000 ML IV SCH; +LIDOCAINE 1% 1 ML SYRINGE. ID PRN; +MORPHINE SULFATE 2 MG/ML DISP.SYRIN. IV PRN; +ONDANSETRON PF 4 MG/2 ML VIAL. IV PRN; +PROCHLORPERAZINE 10 MG/2 ML VIAL. IV PRN; +RANI150T2 PO; +fentaNYL PF VIAL 100 MCG/2 ML VIAL IV PRN
[2016-08-17] MEDS ORDERED: OMEG1CAP6 PO (10:54)
[2016-08-17] MEDS ORDERED: PROPOFOL 20 ML IV ONE (12:39)
[2016-08-17] MEDS ORDERED: LIDOCAINE 2% PF Vial for OR 5 ML VIAL. ONE (12:39)
[2016-08-17] MEDS ORDERED: ONDANSETRON PF 4 MG/2 ML VIAL. ONE (12:39)
[2016-08-17] MEDS ORDERED: DEXAMETHASONE SOD PHOS 20 MG/5 ML VIAL. ONE (12:39)
[2016-08-17] MEDS ORDERED: ROCURONIUM 50 MG/5 ML VIAL. ONE (12:40)
[2016-08-17] MEDS ORDERED: fentaNYL PF VIAL 250 MCG/5 ML VIAL ONE (12:40)
[2016-08-17] MEDS ORDERED: SEVOFLURANE 61 TO 120 MINUTES. IH ONE (14:20)
[2016-08-17] MEDS ORDERED: SURGICEL HEMOSTAT 4X8 EACH. ONE (14:20)
[2016-08-17] MEDS ORDERED: GLYCOPYRROLATE 1 MG/5 ML VIAL. ONE (14:21)
[2016-08-17] MEDS ORDERED: NEOSTIGMINE METHYLSULFATE 5 MG/5 ML SYRINGE. ONE (14:21)
--- NOTE | 2016-08-17 14:24 | PDOC4 ---
Operative Note Operative Note Operative Note: Preoperative Diagnosis: Calculous cholecystitis Postoperative Diagnosis: Same Procedure: Laparoscopic cholecystectomy with intraoperative cholangiogram Surgeons: Hemant Asst: Brit TEIXEIRA Anesthesia: Gen. Estimated Blood Loss: 10 mL Specimen: Gallbladder to pathology Drains: None Complications: None Indications: The patient is a 76-year-old gentleman who recently underwent evaluation for upper abdominal and lower chest pain. He is found of gallstones and cystic duct obstruction was noted on his PIPIDA scan. Surgical treatment was offered by means of a laparoscopic cholecystectomy. The risks of surgery were discussed which include bleeding, infection, bile duct injury, bile leak, pain, the potential for additional surgeries or procedures. The patient understands and would like to proceed. Description: The patient was taken to the operating room and laid supine on the operating table. General anesthesia was performed. The abdomen was prepped with ChloraPrep and draped in a standard surgical fashion. A small infraumbilical incision was made with a scalpel. The Veress needle was then inserted and a pneumoperitoneum was then created. A 5 mm trocar was then inserted and the laparoscope was introduced. In the upper midabdomen a 5 mm trocar was inserted and in the right upper quadrant two 2.3 mm mini lap graspers were inserted. The gallbladder was retracted cephalad. The cystic duct was dissected free from surrounding tissues. One clip was placed on the duct near the gallbladder junction. An opening was made in the duct and a cholangiocatheter placed within and secured with a clip. Using contrast dye and fluoroscopy an intraoperative cholangiogram was performed that appeared unremarkable. The clip and catheter were then withdrawn. Three clips were placed on the cystic duct and it was divided. The cystic artery was then identified, dissected free, doubly clipped and divided as well. The gallbladder was then mobilized away from the liver with cautery. A very small piece of Surgicel was placed on a oozing spot on the gallbladder fossa to assist with hemostasis. The umbilical 5 millimeter trocar was exchanged for an 11 millimeter trocar. The gallbladder was then placed in an endoscopic bag and extracted at the umbilical trocar site. The fascia there was closed with an 0 Vicryl suture. All blood and irrigation fluid was suctioned and hemostasis was good. The remaining ports were removed and the pneumoperitoneum was relieved. The skin incisions were injected with half percent Marcaine with epinephrine, and all were closed using 4-0 Monocryl suture. Steri-Strips and dressings were then applied. The patient tolerated the procedure well and was sent to the recovery room in stable condition. At the end of the case all counts were correct. DENISE PINEDA MD Aug 17, 2016 14:24
[2016-08-17] MEDS ORDERED: HYDROcodone/APAP 5/325MG 1 TAB TABLET PO PRN ×2 (14:30)
[2016-08-17] MEDS ORDERED: NITROGLYCERIN SUBLINGUAL 0.4 MG BOTTLE OF 25. SL PRN (14:30)
[2016-08-17] MEDS ORDERED: HYDROmorphone 2 MG/ML VIAL IV PRN (14:30)
[2016-08-17] MEDS ORDERED: DEXTROSE 50% 25 GM / 50ML DISP.SYRIN. IV PRN (14:30)
[2016-08-17] MEDS ORDERED: ONDANSETRON PF 4 MG/2 ML VIAL. IV PRN (14:30)
[2016-08-17] MEDS ORDERED: CALCIUM CARBONATE 500 MG TAB.CHEW PO PRN (14:30)
[2016-08-17] MEDS ORDERED: 0.9 % SODIUM CHLORIDE 10 ML DISP.SYRIN. IV PRN (14:30)
--- NOTE | 2016-08-17 15:35 | RAD ---
EXAM: Intraoperative cholangiogram. HISTORY: Intraoperative cholangiogram. COMPARISON: None. FINDINGS: 8 fluoroscopic images are obtained intraoperatively during injection of the cystic duct remnant after cholecystectomy. Small filling defects within the distal common duct on the initial images do not persist and may represent air bubbles. The common duct is mildly dilated without a clear distal obstruction. Fluoroscopy time 51 seconds. IMPRESSION: 1. Small common duct filling defects on the initial image likely represent air bubbles. No clear retained stones. 2. Mild common duct dilatation without a clear distal stricture.
[2016-08-17] MEDS: IV 1/2 NORMAL SALINE 1,000 ML IV SCH ×2 (17:38→18:20)
[2016-08-17] MEDS ORDERED: ATORVASTATIN CALCIUM 40 MG TABLET. PO SCH (21:00)
[2016-08-17] MEDS: ASPIRIN ENTERIC COATED 81 MG TABLET.DR. PO SCH (21:00)
[2016-08-17] MEDS: FAMOTIDINE 20 MG TABLET. PO SCH (22:13)
[2016-08-17] MEDS: METOPROLOL TART IMMED RELEASE 25 MG TABLET. PO SCH (22:15)
--- NOTE | 2016-08-17 23:52 | ACF ---
Admission Forms Criteria ABDOMINAL PAIN Clinical Indications for Admission to Inpatient Care (Place 'X' for any and all applicable criteria): Admission is indicated for ANY ONE of the following(1)(2)(3)(4)(5): [X ]I. Inpatient admission required rather than observation care (Also use Abdominal Pain: Observation Care, as appropriate) because of ANY ONE of the following: [ ]a) Severe pain requiring acute inpatient management [X ]b) Identification of etiology/finding that requires inpatient care (eg, aortic dissection, free air) [ ]c) Absent bowel sounds with complete ileus(6) [ ]d) Suspected toxic megacolon [ ]e) Severe electrolyte abnormalities requiring inpatient care [ ]f) High fever or infection requiring inpatient admission as indicated by ANY ONE of following(7)(8): [ ] i) Appropriate outpatient or observational care antimicrobial treatment unavailable, not effective, or not feasible [ ] ii) Documented bacteremia [ ] iii) Temperature > 104.9 degrees F (oral) [ ] iv) T >103.1 F (oral) or < 96.8 F(rectal) that does not respond to all emergency treatment measures [ ]g) Signs of intestinal obstruction [B] [ ]h) Hemodynamic instability [ ]i) IV fluid to replace significant ongoing losses (greater than 3 L/m2 per day) (12)(13) [ ]j) Percutaneous or open drainage (eg, abscess, biliary tract ) procedures [ ]k) Parenteral nutrition regimen that must be implemented on inpatient basis [ ]l) Other condition,treatment or monitoring requiring inpatient admission. [ ]II. Peritoneal signs present [ ]III. Surgery needed that cannot be performed on an ambulatory basis. [ ]IV. Evaluation requires patient to not eat or drink for extended period ( eg, more than 24 hours). [ ]V. Contraindications and/or Inappropriate clinical situations for Observational Care in patients with abdominal pain, when ANY ONE of the following is required: [ ]a) Thorough evaluation is required to prevent catastrophic events due to delays in diagnosing (e.g.Mesenteric ischemia) 1,3 [ ]b) Patient with severe pathology or with chronic symptoms unlikely to improve in the ED stay (3) [X ]. General contraindications and/or Inappropriate clinical situations for Observational Care in patients with abdominal pain, when ANY ONE of the following is required: [ X]a) Prediction of prolongation of LOS based on ANY ONE of the following may be considered as a contraindication for observational care 2, 3, 4, 5, 6, 7, 8, 9, 10, 11 [X ]i) Age > 65 yrs. [ ]ii) Patient arriving by ambulance [ ]iii) Patient with high acuity [ ]iv) Patient requiring vital sign monitoring [ ]v) Patient on IV medication [ ]b) Systolic blood pressures 180mmHg 3,12 [ ]c) Patient with altered mental status including delirium and other alteration of consciousness, (3) [ ]d) Patient whose discharge disposition will be to a alf home or rehabilitation home should not be managed in Emergency Department Observation Unit. CMS rule requires 3 days hospital stay before such placement.3,13 [ ]e) Patient with failure to thrive due to broad array of etiologies 3,16,17 [ ]f) Inability to ambulate 3,14 Extended stay beyond goal length of stay may be needed for(2)(3): [ ]a) Persistent abdominal pain with suspected intra-abdominal process [ ]b) Diagnosed condition requiring continued stay (e.g., pancreatitis, complicated diverticulitis) [ ]c) Surgery (e.g., colectomy) The original [facility] [employer] content created by [employer] has been revised. The portions of the content which have been revised are identified through the use of italic text or in bold, and [facility] has neither reviewed nor approved the modified material.All other unmodified content is copyright [facility] [employer]. Please see references footnoted in the original [facility] [employer] edition 2016 Admission Criteria Met?: Yes SATHISH FIGUEROA Aug 17, 2016 23:52
[2016-08-18 03:30] VITALS: BP 100/53
[2016-08-18 07:00] VITALS: BP 136/53
[2016-08-18] MEDS ORDERED: TAMSULOSIN 0.4 MG CAP.ER.24H. PO SCH (09:00)
[2016-08-18] MEDS ORDERED: hydroCHLOROthiazide 25 MG TABLET PO SCH (09:00)
[2016-08-18] MEDS ORDERED: PRASUGREL 10 MG TABLET. PO SCH (09:00)
[2016-08-18] MEDS ORDERED: ENZALUTAMIDE PO SCH (09:00)
[2016-08-18] MEDS ORDERED: LISINOPRIL 20 MG TABLET PO SCH (09:00)
[2016-08-18] MEDS: FAMOTIDINE 20 MG TABLET. PO SCH (09:36)
[2016-08-18] MEDS: METOPROLOL TART IMMED RELEASE 25 MG TABLET. PO SCH (09:38)
[2016-08-18] MEDS: ASPIRIN ENTERIC COATED 81 MG TABLET.DR. PO SCH (09:40)
[2016-08-18 11:00] VITALS: BP 156/56
--- NOTE | 2016-08-18 13:50 | PDOC ---
SURGICAL PROGRESS NOTE Subjective tolerating diet minimal pain urinating ready to go home Vital Signs Vital Signs Date Time Temp Pulse Resp B/P (MAP) Pulse Ox O2 Delivery O2 Flow Rate FiO2 08/18/16 11:00 97.5 44 18 156/56 (89) 99 Room Air 97.5 08/17/16 20:00 2.0 I&O Intake and Output 08/18/16 07:00 Intake Total 2721 ml Output Total 1200 ml Balance 1521 ml Intake IV Total 2000 ml Other 721 ml Output Urine Total 1200 ml General: Alert, Oriented X3, Cooperative, No acute distress Abdomen: Soft, Other (ND, lap dressings dry ) Assessment/Plan s/p lap javier dc home FU 2 weeks Problems: SAMY TOURE [employer] Aug 18, 2016 13:50
[2016-08-18] MEDS ORDERED: HYDR-2758 PO (13:52)
[2016-08-18] MEDS ORDERED: HYDR-971 PO (14:22)
--- NOTE | 2016-08-19 17:39 | PATHOLOGY ---
PATHOLOGY REPORT * * * * * * * * FINAL DIAGNOSIS: Gallbladder, laparoscopic cholecystectomy: - Mucoid bile containing several soft calculi. - Cholesterolosis, microscopic, focal. - Chronic cholecystitis. COMMENT: There is no evidence of malignancy. REPORT ELECTRONICALLY SIGNED BY: Oh Glover M.D. DATE/TIME: 08/19/2016 17:38 * * * * * * * * GROSS PATHOLOGY: Received in formalin labeled "Kurt Mcgraw, gallbladder and its contents," is a 7.8 x 2.7 x 2.3 cm, intact gallbladder with purple darby serosal surfaces. Opening the gallbladder reveals darby brown, velvety mucosa and an average wall thickness of 0.3 cm. The lumen of the gallbladder is filled with thick, mucoid bile that is densely adherent to the mucosal surface. Several soft calculi are present and no masses are noted grossly. Silver Steward sections from the body and fundus are submitted along with the proximal margin in cassette A1. (JPM; 08/18/16) INITIAL CPT CODE(S): A; 38842 Professional services performed by [employer] [place] [address] Technical services performed by [employer] at [address] [place] [address] [address], [place] [address]. SPECIMEN(S) RECEIVED: A.Gallbladder and its contents CLINICAL HISTORY: Cholelithiasis PATIENT: KURT MCGRAW /AGE: 1 1940 (Age: 76) PATIENT #: [id number] ALT CASE #: SPECIMEN COLLECTION DATE: 08/17/2016 SPECIMEN RECEIVED DATE: 08/18/2016 [facility] - [address] [place] [address] - PHONE: [phone] * * * END OF REPORT * * *
== END 2016-08-18 14:35 | disposition home or self-care (01) ==
LOC: SURG 10:09 → 4 NORTH 15:00
PROVIDERS: ADMIT Surgery; ATTEND Surgery
DX: K80.10 Calculus of gallbladder with chronic cholecystitis without obstruction (principal)
CPT/HCPCS: 47563; 74300; C1769; C1782; G0378; G0379; J0690; J0780; J1100; J2405; J2704; J2710; J3010; J3490; J7030; Q9967

== ENCOUNTER → 2017-10-11 | Outpatient (CLI) | payer MEDICARE ==
[2017-10-11] MEDS: REGADENOSON 0.4 MG/5 ML DISP.SYRIN. IV (10:50)
== END | disposition home or self-care (01) ==
LOC: ECHO 07:47
DX: I08.1 Rheumatic disorders of both mitral and tricuspid valves (principal); I25.10 Atherosclerotic heart disease of native coronary artery without angina pectoris; I10 Essential (primary) hypertension; E78.5 Hyperlipidemia, unspecified; E78.00 Pure hypercholesterolemia, unspecified; K21.9 Gastro-esophageal reflux disease without esophagitis; Z95.5 Presence of coronary angioplasty implant and graft; Z85.46 Personal history of malignant neoplasm of prostate
CPT/HCPCS: 78452; 93017; 93306; 96374; 96375; 96376; A9500; J2785